=== PATIENT | male | born 1995 | race Two or more races ===

== ENCOUNTER 2021-11-27 14:00 | Outpatient (CLI) | payer OTHER | END 2021-11-27 14:05 | disposition home or self-care (01) | LOC: PPH VACUNA 14:00 | PROVIDERS: ATTEND Emergency Medicine Pediatric Emergency Medicine | DX: Z23 Encounter for immunization (principal) ==

== ENCOUNTER → 2021-12-22 | Emergency (ER) | payer OTHER ==
[~2021-12-22] VITALS: Ht 170.2 cm; Wt 54.4 kg
[~2021-12-22] MED LIST: FLONASE ALLERG9.9 ML NASAL; SINUS RINSE ST1 EACH NS; ZYRTEC10 MG PO
== END | disposition home or self-care (01) ==
LOC: ER 07:47
DX: J06.9 Acute upper respiratory infection, unspecified (principal); Z20.822 Contact with and (suspected) exposure to COVID-19; J45.909 Unspecified asthma, uncomplicated; Z87.891 Personal history of nicotine dependence

== ENCOUNTER 2022-06-26 22:51 | Emergency (ER) | payer OTHER ==
[~2022-06-26] VITALS: Ht 167.6 cm; Wt 54.4 kg
[2022-06-27] MEDS ORDERED: PHENAGIL TABLE1 EACH PO (02:42)
[2022-06-27] MEDS ORDERED: DOLOGESIC 500-1 EACH PO (02:42)
[2022-06-27] MEDS ORDERED: ZYNCOF 20-400120 ML PO (02:42)
== END 2022-06-27 02:48 ==
LOC: ER 22:51
DX: R53.81 Other malaise (principal); J06.9 Acute upper respiratory infection, unspecified; Z20.822 Contact with and (suspected) exposure to COVID-19